=== PATIENT | male | born 1950 | race Two or more races ===

== ENCOUNTER 2022-04-25 09:23 | Emergency (ER) | payer OTHER ==
[~2022-04-25] VITALS: Ht 188 cm; Wt 80.7 kg
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
--- NOTE | 2022-04-25 09:35 | NUR ---
AT BED SIDE
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
--- NOTE | 2022-04-25 11:09 | NUR ---
Patient discharged to home in stable condition. Written and verbal after care instructions given. Patient verbalizes understanding of instruction.
[2022-04-25 11:10] VITALS: BP 115/65
== END 2022-04-25 11:10 | disposition home or self-care (01) ==
LOC: ER 09:35
DX: M54.2 Cervicalgia (principal); M54.6 Pain in thoracic spine; I10 Essential (primary) hypertension; Z88.0 Allergy status to penicillin; V49.49XA Driver injured in collision with other motor vehicles in traffic accident, initial encounter; Y93.89 Activity, other specified; Y92.413 State road as the place of occurrence of the external cause; Y99.8 Other external cause status
CPT/HCPCS: 71045-TC; 72040-TC